=== PATIENT | female | born 1990 | race African-American/Black ===

== ENCOUNTER 2016-10-04 18:03 | Emergency (ER) | payer OTHER ==
[~2016-10-04] VITALS: Ht 162.6 cm; Wt 101.6 kg
[~2016-10-04 18:03] MED LIST: EXTR500C PO
[2016-10-04 18:12] VITALS: BP 121/81; PULSE 102; RESP 16; TEMP 99; O2SAT 98
--- NOTE | 2016-10-04 19:45 | PD ---
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 Patient is constant and 7/10 in intensity. Patient has worsened reportedly by ambulation. Patient has had symptoms for a while and has been referred to the [facility] by her primary care physician but has not had any imaging. Patient's last menstrual period was one week ago and normal for her. Patient is 0 para 0. Patient is infrequently sexually active. Patient has no known history of ovarian cyst disease. Patient has not noticed any dysuria frequency urgency or hematuria but has had right-sided flank pain. Patient is able to identify alleviating factors. Patient's had no anorexia. Patient's had no nausea or vomiting. Patient's had no recent respiratory illness symptoms and no shortness of breath or chest pain. Patient's had no injury or fall. [facility] Past Medical History Narrative Medical Obesity headache tonsillectomy shoulder surgery; no alcohol use no tobacco use; nursing notes reviewed Blood Disorders: No Cancer: No Cardiovascular Problems: No Diminished Hearing: No Endocrine: No Genitourinary: No Headaches: Yes Immune Disorder: No Musculoskeletal: No Psychiatric: No Reproductive: No Respiratory: No Immunizations Current: Yes ?: Not : 0 Past Surgical History Tonsillectomy: Yes Other Surgery: Yes (rt shoulder) Social History Alcohol Use: No Tobacco Use: No Substance Use: No Allergies-Medications (Allergen,Severity, Reaction): Coded Allergies: Ibuprofen (Verified Allergy, Severe, HEADACHE, 10/04/16) Tramadol (Verified Allergy, Severe, HEADACHE, 10/04/16) Reported Meds & Prescriptions Reported Meds & Active Scripts Active Metrogel Vaginal Gel (Metronidazole Vaginal Gel) 0.75 % Gel 1 Appl VAGINAL HS 5 Days Acetaminophen Extra Strength (Acetaminophen) 500 Mg Cap 500 Mg PO Q6H PRN Review of Systems Except as stated in HPI: all other systems reviewed are Neg General / Constitutional: No: Fever, Chills HENT: No: Sore Throat, Congestion Cardiovascular: No: Chest Pain or Discomfort Respiratory: No: Cough, Shortness of Breath Gastrointestinal: Positive: Abdominal Pain, No: Nausea, Vomiting, Diarrhea, Hematemesis, Hematochezia, Loss of Appetite Genitourinary: Positive: Flank Pain, Discharge (scant), No: Urgency, Frequency Musculoskeletal: No: Myalgias, Arthralgias Skin: No Rash Neurologic: No: Weakness Psychiatric: No: Anxiety Endocrine: No: Heat Intolerance Hematologic/Lymphatic: No: Easy Bruising Physical Exam Narrative GENERAL: Well-developed well-nourished female in no acute distress no respiratory distress SKIN: Warm and dry. HEAD: Normocephalic. EYES: No scleral icterus. No injection or drainage. NECK: Supple, trachea midline. No JVD or lymphadenopathy. CARDIOVASCULAR: Regular rate and rhythm without murmurs, gallops, or rubs. RESPIRATORY: Breath sounds equal bilaterally. No accessory muscle use. GASTROINTESTINAL: Abdomen soft, bilateral lower quadrant tenderness to palpation right greater than left without guarding or rebound, nondistended. Pelvic exam: Normal external exam no redness no induration no lesions; speculum exam scant white mucus, no discharge no clots no tissue no blood cervical os closed; bimanual exam no adnexal mass isolated right-sided tenderness no cervical motion tenderness no uterine enlargement or tenderness. MUSCULOSKELETAL: No cyanosis, or edema. BACK: Nontender without obvious deformity. No CVA tenderness. Data Data Last Documented VS Vital Signs Date Time Temp Pulse Resp B/P Pulse Ox O2 Delivery O2 Flow Rate FiO2 10/04/16 22:54 98.7 74 16 105/67 100 Room Air Orders Complete Blood Count With Diff (10/04/16 19:30) Basic Metabolic Panel (Bmp) (10/04/16 19:30) Gc And Chlamydia Pcr (10/04/16 19:30) Wet Prep Profile (10/04/16 19:30) Urinalysis - C+S If Indicated (10/04/16 19:30) Ed Urine Pregnancytest Poc (10/04/16 19:30) Us Pelvis Comp W Doppler (10/04/16 ) Ondansetron Inj (Zofran Inj) (10/04/16 22:15) Morphine Inj (Morphine Inj) (10/04/16 22:15) Labs Laboratory Tests Test 10/04/16 10/04/16 19:40 20:00 White Blood Count 8.4 TH/MM3 Red Blood Count 4.22 MIL/MM3 Hemoglobin 11.8 GM/DL Hematocrit 35.3 % Mean Corpuscular Volume 83.8 FL Mean Corpuscular Hemoglobin 27.9 PG Mean Corpuscular Hemoglobin 33.2 % Concent Red Cell Distribution Width 11.6 % Platelet Count 265 TH/MM3 Mean Platelet Volume 8.5 FL Neutrophils (%) (Auto) 58.6 % Lymphocytes (%) (Auto) 32.8 % Monocytes (%) (Auto) 7.0 % Eosinophils (%) (Auto) 1.2 % Basophils (%) (Auto) 0.4 % Neutrophils # (Auto) 5.0 TH/MM3 Lymphocytes # (Auto) 2.7 TH/MM3 Monocytes # (Auto) 0.6 TH/MM3 Eosinophils # (Auto) 0.1 TH/MM3 Basophils # (Auto) 0.0 TH/MM3 CBC Comment DIFF FINAL Differential Comment Urine Color YELLOW Urine Turbidity SLIGHT Urine pH 7.0 Urine Specific Th[place]ne 1.025 Urine Protein TRACE mg/dL Urine Glucose (UA) NEG mg/dL Urine Ketones NEG mg/dL Urine Occult Blood NEG Urine Nitrite NEG Urine Bilirubin NEG Urine Leukocyte Esterase NEG Urine RBC 0-3 /hpf Urine WBC 3-5 /hpf Urine Squamous Epithelial 6-8 /hpf Cells Urine Amorphous Sediment MOD Urine Bacteria OCC /hpf Microscopic Urinalysis Comment CULT NOT INDICATED Sodium Level 141 MEQ/L Potassium Level 3.8 MEQ/L Chloride Level 105 MEQ/L Carbon Dioxide Level 27.5 MEQ/L Anion Gap 9 MEQ/L Blood Urea Nitrogen 17 MG/DL Creatinine 1.10 MG/DL Estimat Glomerular Filtration 73 ML/MIN Rate Random Glucose 87 MG/DL Calcium Level 8.9 MG/DL Clue Cells (Wet Prep) PRESENT Vaginal Trichomonas (Wet Prep) NONE SEEN Vaginal Yeast (Wet Prep) NONE SEEN Chlamydia trachomatis DNA NOT DETECTED (PCR) Neisseria gonorrhoeae DNA NOT DETECTED (PCR) MDM Medical Decision Making Medical Screen Exam Complete: Yes Emergency Medical Condition: Yes Medical Record Reviewed: Yes Interpretation(s) poc hcg: negative UA: wnl no cx indicated wet prep: positive clue cells Last Impressions Pelvis Ultrasound 10/04/16 0000 Signed Impressions: Service Date/Time: Tuesday, October 04, 2016 21:47 - CONCLUSION: Normal examination. Elieser Murillo MD CBC & BMP Diagram 10/04/16 19:40 Vital Signs Date Time Temp Pulse Resp B/P Pulse Ox O2 Delivery O2 Flow Rate FiO2 10/04/16 20:59 84 16 131/77 99 Room Air 10/04/16 18:12 99.0 102 16 121/81 98 Differential Diagnosis Abdominal pain, ruptured ovarian cyst, ovarian torsion, ectopic , UTI, PID, pyelonephritis, atypical appendicitis, musculoskeletal pain Narrative Course IV access obtained specimens collected and sent for resulting [id number] test ordered Pelvic exam performed patient noted to have some tenderness to palpation in the area of the right adnexa without palpable mass otherwise no cervical motion tenderness no uterine enlargement no left adnexal mass or tenderness no right lower quadrant abdominal pain on pelvic exam. Lab values found to be in normal range CBC was automated differential values are normal metabolic panel shows mild renal insufficiency with a creatinine of 1.10 most likely reflective of hydration status; [id number] hCG is negative; urinalysis positive for squamous epithelial cells culture not indicated Ultrasound of pelvis with Doppler to evaluate for torsion obtained and found to be normal per reading radiologist Patient complains of increased pain after ultrasound administered 1 dose of morphine sulfate and Zofran; no antipyretics administered patient has had no fever. Vital signs at time of anticipated discharge blood pressure 1/67 heart rate 74 and regular room air O2 saturation 100% temperature 98.7 and pain 0/10. Patient is stable at this time for outpatient management with diagnosis of pelvic pain and vaginosis. Patient has community resource officer Dr. Crump that she should follow up with on Friday however is to return to the emergency department over the weekend should she develop any fever or increased pain. Diagnosis Primary Impression: Pelvic pain Additional Impression: Vaginosis Referrals: Primary Care Physician call for appointment Patient Instructions: General Instructions Additional Instructions: Complete course of antibiotic as prescribed Follow-up with your primary care provider Take acetaminophen per package directions as needed for pain or fever 100.4F or greater Return to the emergency department for any concerns or change in conditions Med/Other Pt SpecificInfo: Prescription(s) given Scripts Metronidazole Vaginal Gel (Metrogel Vaginal Gel)0.75 % Gel1 Appl VAGINAL HS 5 Days Ref 0 Prov:Caitlin Carrington MD 10/04/16 Disposition: 01 DISCHARGE HOME Condition: Stable Caitlin Carrington MD October 04, 2016 19:45
[2016-10-04 20:08] LABS: BLOOD, URINE NEG (NEG); GLUCOSE,URINE NEG (NEG); KETONE, URINE NEG (NEG); NITRITE,URINE NEG (NEG)
[2016-10-04 20:11] LABS: BASOPHIL % 0.4 % (0.0-2.0); EOSINOPHIL # 0.1 TH/MM3 (0-0.4); EOSINOPHIL % 1.2 % (0.0-4.0); HEMATOCRIT 35.3 % (35.0-46.0); HEMO FLAGS DIFF FINAL; LYMPH % 32.8 % (9.0-44.0); LYMPHOCYTE # 2.7 TH/MM3 (1.0-4.8); MEAN CELL VOLUME 83.8 FL (80.0-100.0); MEAN CORPUSCULAR HEMOGLOBIN 27.9 PG (27.0-34.0); MEAN CORPUSCULAR HGB CONC 33.2 % (32.0-36.0); NEUT % 58.6 % (16.0-70.0); PLATELET COUNT 265 TH/MM3 (150-450); RED BLOOD COUNT 4.22 MIL/MM3 (4.00-5.30); RED CELL DISTRIBUTION WIDTH 11.6 % (11.6-17.2); WHITE BLOOD COUNT 8.4 TH/MM3 (4.0-11.0)
[2016-10-04 20:12] LABS: URINE COLOR YELLOW (YELLW/STRAW)
[2016-10-04 20:13] LABS: BACTERIA, URINE OCC /hpf; RBC, URINE 0-3 /hpf (0-3)
[2016-10-04 20:14] LABS: COMMENT (UR) CULT NOT INDICATED; CULTURE IF INDICATED CULT NOT INDICATED
[2016-10-04 20:26] LABS: POTASSIUM 3.8 MEQ/L (3.5-5.1)
[2016-10-04 20:29] LABS: BICARBONATE 27.5 MEQ/L (21.0-32.0)
[2016-10-04 20:59] VITALS: BP 131/77; PULSE 84; RESP 16; O2SAT 99
--- NOTE | 2016-10-04 22:14 | RADHPO ---
EXAM DATE/TIME: 10/04/2016 21:47 [place] COMPARISON: No previous studies available for comparison. INDICATIONS : Pelvic pain. MEDICAL HISTORY : Pelvic pain. SURGICAL HISTORY : Tonsillectomy. ENCOUNTER: Initial ACUITY: 3 days PAIN SCORE: 4/10 LOCATION: Bilateral pelvis MEASUREMENTS: UTERUS: 7.7 x 4.0 x 5.0 cm ENDOMETRIAL STRIPE: 16 mm RIGHT OVARY: 3.6 x 1.9 x 2.2 cm LEFT OVARY: 2.9 x 2.2 x 3.1 cm FINDINGS: UTERUS: The myometrium has homogeneous echotexture without mass. RIGHT OVARY: Ovary contains no mass or significant cystic lesion. LEFT OVARY: Ovary contains no mass or significant cystic lesion. MISCELLANEOUS: No free fluid. CONCLUSION: Normal examination. Elieser Murillo MD on October 04, 2016 at 22:01 Board Certified Radiologist. This report was verified electronically.
[2016-10-04] MEDS ORDERED: ONDANSETRON HCL 4 MG/2 ML VIAL IV PUSH ONE (22:15)
[2016-10-04] MEDS ORDERED: MORPHINE SULFATE 4 MG/ML INJ IV PUSH ONE (22:15)
[2016-10-04] MEDS ORDERED: METR0.7528 VAGINAL (22:38)
[2016-10-04 22:54] VITALS: BP 105/67; PULSE 74; RESP 16; TEMP 98.7; O2SAT 100
[2016-10-05 03:13] LABS: CHLAMYDIA PCR NOT DETECTED (NOT DETECT); NEISSERIA PCR NOT DETECTED (NOT DETECT)
== END 2016-10-04 23:18 | disposition home or self-care (01) ==
LOC: PHED 18:03
DX: R10.2 Pelvic and perineal pain (principal); N76.0 Acute vaginitis
CPT/HCPCS: 76856; 80048; 81001; 84703; 85025; 87210; 87491; 87591; 93975; 96374; 96375; 99284; J2270; J2405